=== PATIENT | female | born 1965 | race Caucasian/White ===

== ENCOUNTER 2019-05-19 14:02 | Emergency (ER) | payer SELFPAY ==
[2019-05-19 14:10] VITALS: BP 120/91; PULSE 75; RESP 17; TEMP 36.8; O2SAT 99; BMI 27.2
--- NOTE | 2019-05-19 14:54 | ED_ITS ---
HPI - Extremity Problem General: Chief complaint: Extremity Injury, Upper Stated complaint: wrist pain Time Seen by Provider: 05/19/19 14:34 Source: patient Mode of arrival: ambulatory Limitations: no limitations History of Present Illness: HPI Narrative: Patient comes in for evaluation of injury to the left wrist. Patient points to the radial area of the wrist where she has pain. Patient states that she hit it against the frame of the bed about 3 weeks ago and has had persistent pain since. No obvious deformity is noted. Patient appears well. Patient appears in mild pain. Review of Systems General: Reports: 10 or more systems reviewed and unremarkable except in HPI and below Musc: Reports: joint pain PFSH ED PFSH: Social History Smoking and tobacco status: current every day smoker Physical Exam Const: COMMON NORMALS: no apparent distress and oriented x3 GENERAL APPEARANCE: cooperative HENMT: COMMON NORMALS: normocephalic, external ears normal, EAC's normal, TM's normal bilaterally and external nose normal HEAD & SCALP: normal to inspection and normocephalic FACE & SINUS: normal facial exam NOSE: external nose normal GENERAL EAR: hearing not grossly impaired EXTERNAL EAR: Yes external ears normal EXTERNAL AUDITORY CANAL: EAC's normal TYMPANIC MEMBRANE: TM's normal bilaterally MOUTH: oral and palatal mucosa normal THROAT: posterior oropharynx normal Eye: COMMON NORMALS: PERRL and EOMs intact bilaterally PUPIL: Yes PERRL Neck/C-Spine: COMMON NORMALS: full ROM and no lymphadenopathy Lymph: LYMPHATIC: no lymphedema noted Chest: COMMONS NORMALS: inspection of chest normal and palpation of chest normal Resp: COMMON NORMALS: normal respiratory effort and clear to auscultation bilaterally AUSCULTATION: clear to auscultation bilaterally Cardio: COMMON NORMALS: regular rate and regular rhythm RATE: regular rate RHYTHM: regular rhythm GI: COMMON NORMALS: normal to inspection, nondistended, normoactive bowel sounds and non-tender : COMMON NORMALS: Yes no CVA tenderness BLADDER/KIDNEY EXAM: Yes no CVA tenderness Back/Pelvis: COMMON NORMALS: no CVA tenderness and thoracic and lumbar spine normal to inspection Extremity: NARRATIVE EXTREMITY EXAM: Tenderness is noted to the radial styloid area of the left wrist. Some mild swelling is noted to the area. No obvious redness or ecchymosis. Neuro: COMMON NORMALS: oriented x3, moves all extremities and no focal motor deficits Psych: COMMON NORMALS: mental status grossly normal and cooperative Skin: COMMON NORMALS: no rashes or lesions noted GENERAL SKIN EXAM: no rashes or lesions noted Course Vital Signs: Vital signs: Vital Signs Temperature 98.2 F 05/19/19 14:10 Pulse Rate 74 05/19/19 15:27 Respiratory Rate 18 05/19/19 15:27 Blood Pressure 122/71 05/19/19 15:27 Pulse Oximetry 100 05/19/19 15:27 MDM - Extremity (Nontraumatic) MDM Narrative: Medical decision making narrative: Patient came in today for complaints of left wrist pain with exacerbation of pain with movement of the thumb. Exam noted some tenderness to the radial styloid area, no obvious deformity, no redness or swelling. Differential diagnosis includes tendinitis, fracture, sprain. X-ray was negative for any fracture or dislocation. Reviewed exam with patient recommended treatment for tendinitis. Will give a burst of steroids prednisone 20 mg daily for 5 days. Also write for some ibuprofen 804 her pain relief. Encourage plenty of fluids of medicine. Recommend return for worsening symptoms or increased redness or fever. Patient reported understanding. Discharge Plan Discharge Patient Disposition: Home, Self-Care Clinical Impression: Tendinitis, de Quervain's Condition: Stable Prescriptions: New prednisone 20 mg tablet 20 mg PO DAILY 5 Days Qty: 5 RF: 0 ibuprofen 800 mg tablet 800 mg PO Q8H PRN (Reason: pain) Qty: 30 RF: 0 Discharge Orders: Discharge Order (Routine); Ordered 05/19/19 Ordered By: Brian Garcia Discharge Diet: Usual diet Discharge Activity: Increase activity as tolerated Patient Instructions: Tendinitis (ED) Activity Restrictions/Additional Instructions: Activity as tolerated Ice or heat for comfort Splint thumb until pain relief Acetaminophen for further pain relief Drink plenty of water with medications Follow-up with primary care in one week or as needed Return to ER for high fever or increase redness and swelling to the area Coding Level of Care Code ED [employer] Chief for [employer] [facility] Exam Comprehensive
--- NOTE | 2019-05-19 14:55 | XRR_ITS ---
PROCEDURE INFORMATION: Exam: XR Left Wrist Exam date and time: 05/19/2019 3:07 PM Age: 53 years old Clinical indication: Pain and injury or trauma; Injury history: Hurt wrist while vacuuming; Initial encounter; Sprain or strain; Left; Injury date: 3 weeks ago; Additional info: Pain, injury TECHNIQUE: Imaging protocol: XR Left wrist. Views: 3 or more views. COMPARISON: No relevant prior studies available. FINDINGS: Bones/joints: There is osteopenia.There is no evidence for acute fracture or malalignment. Soft tissues: Normal. XR/XR wrist LT min 3V* [id number] IMPRESSION: No acute findings.
[2019-05-19 15:27] VITALS: BP 122/71; PULSE 74; RESP 18; O2SAT 100
== END 2019-05-19 15:38 | disposition home or self-care (01) ==
PROVIDERS: Emergency Provider Nurse Practitioner Family
DX: M65.4 Radial styloid tenosynovitis [de Quervain] (principal); F17.200 Nicotine dependence, unspecified, uncomplicated
CPT/HCPCS: 73110; 99281; 99282